=== PATIENT | female | born 1970 | race Caucasian/White ===

== ENCOUNTER 2025-04-09 10:25 | Day surgery (SDC) | payer SELFPAY ==
--- NOTE | 2025-03-31 09:01 | PCM.HP.BLA ---
History and Physical Date of Admission: 04/09/25 HPI: The patient is a 54 year old female presenting for pre-operative visit. She is scheduled for laparoscopic LSO, right salpingectomy, for pelvic pain and left ovarian cyst on 04/09/2025. Procedure discussed along with risks, benefits and complications. Other alternatives discussed for management. Consent form signed? Yes. ? ? PAST MEDICAL HISTORY PAST MEDICAL HISTORYDiagnosisDate?Essential hypertension? ? ? PAST SURGICAL HISTORY PAST SURGICAL HISTORYProcedureLateralityDate?VAGINAL HYSTERECTOMY?2006?still has ovaraies ? ? ? CURRENT MEDICATIONS Current Outpatient MedicationsMedicationSigDispenseRefill?ibuprofen (MOTRIN) 200 mg tabletTake 200 mg by mouth every 6 hours as needed.???hydroCHLOROthiazide (HYDRODIURIL, ESIDRIX) 25 mg tabletTake 25 mg by mouth once daily.???No current facility-administered medications for this visit. ? ? ALLERGIES: Morphine, Penicillin G, and Penicillins ? PERSONAL HISTORY: SOCIAL HISTORY Social History?Tobacco Use?Smoking status:Former??Types:Cigarettes?Smokeless tobacco:NeverVaping Use?Vaping status:current everyday user?Substances:Nicotine, Flavoring?Devices:DisposableSubstance Use Topics?Alcohol use:Never?Drug use:Never ? FAMILY HISTORY: FAMILY HISTORY History reviewed. No pertinent family history. ? REVIEW OF SYMPTOMS: GENERAL: denies fevers or chills ENDOCRINOLOGY: has not been on steroids Cardiology : denies palpitations or chest pain Respiratory: denies SOB or cough Hematology: denies history of prolonged bleeding or easy bruising or VTE Allergy: Denies history of personal or family history of allergy to anesthesia ? PHYSICAL EXAMINATION: ? VITALS: Blood pressure 116/78, weight 88.5 kg (195 lb). ? GENERAL: The patient is well nourished, well hydrated in no acute distress. , The patient is oriented to time, place, and person. NECK: Supple. No lynphadenopathy, normal thyroid, no thyromegaly. LUNGS: Clear to auscultation bilaterally. no wheezes, rhonchi or rales ? Pelvic US 03/20/25 RIGHT OVARY: Obscured by overlying bowel gas. ?? LEFT OVARY: 8.4 x 6.2 x 7 cm. There are 2 cysts measuring up to 7.8 x 6.1 x 5.7 cm. Smaller cyst measuring 1.3 x 1.3 x 0.8 cm. No solid mass. Arterial and venous?flow present. ?? OTHER: No significant pelvic free fluid. ? ? IMPRESSION: left ovarian cyst, pelvic pain ? PLAN: The risks/benefits/alternatives and personal involved for the planned laparoscopic LSO, right salpingectomy were reviewed with the patient. Her questions were answered to her satisfaction and she desires to proceed. Consent was signed. I reviewed with her postop instructions and expectations. ? ? I have reviewed and updated past medical and surgical history, medications and allergies Assessment & Plan Assessment/Plan (1) Left ovarian cyst: (2) Pelvic pain:
[2025-04-09] VITALS (9 sets, daily range): BP systolic 111–144; BP diastolic 90–104; PULSE 74–84; RESP 16–18; TEMP 36.2–37; O2SAT 98–100; BMI 32.5
[2025-04-09] MEDS: Lactated Ringers 1,000 ML 15 ML IV ×2 (11:13→12:20)
[2025-04-09] MEDS: Ketorolac 30 MG/ML Syringe IV (11:14)
--- NOTE | 2025-04-09 11:43 | PCM.PRE.AN2 ---
ASA Classification* ASA Classification ASA Classification: 2 Assessment & Plan Anesthesia* Anesthesia Assessment Anesthesia Assessment: Discussed sedation and/or anesthesia options, risks, benefits, and alternatives with patient/parents/legal guardian/POA. Questions invited. The patient/parents/legal guardian/POA seems to understand and agrees to proceed with anesthesia plan. Reviewed the physical assessment, medical history, allergy history and patient home medications list prior to surgery/procedure/anesthetic and documented any changes. Performed airway and anesthesia risk assessments. Anesthesia Type Anesthesia Type: General History Source History Obtained from:: Patient and Chart Anesthesia Focused Assessment* Temperature: 98.6 F Pulse Rate: 79 Blood Pressure: 125/94 Respiratory Rate: 18 Pulse Ox: 99 Oxygen Delivery Method: Room Air Airway Assessment Mouth opens: >3 cm Mallampati Score: III Teeth Condition: Dentures (Patient has full upper and lower dentures.) Neck Range of motion (ROM): Full ROM Labs Anesthesia Preop lab: CBC CHEMISTRY COAG Pre-Assessment Diagnosis/Proposed Procedure Planned Operative Procedure(s): (R) Laparoscopic left Salpingo-oopherectomy. right salpingectomy Anesthesia History Anesthesia History - life sciences director: Anesthesia History - life sciences director Hx Hospitalization Yes: 03/27/25 LT OVARY CYST 04/07/25 14:08 PAIN Any Problems With Anesthesia No 04/07/25 14:08 Cholinesterase deficiency No 04/07/25 14:08 You/Your Family Experience No 04/07/25 14:08 fever (hyperthermia) with Relationship Recent Exposure to Contagious No 04/09/25 11:05 Disease Does patient have nerve No 04/07/25 14:08 stimulator Patient instructed to have device shut off --Does patient have Pacemaker No 04/09/25 11:05 or ICD? When Was Last Pacemaker Check QUESTION #4 FULL TEXT: You/Your Family Experience fever (hyperthermia) with Anesthesia Last Oral Intake Last Oral intake: Last Oral Intake NPO since 23:00 04/09/25 11:05 Meds taken in AM with sips of water? Meds patient instructed to take am of surgery PONV PONV - life sciences director: PONV - life sciences director Female Yes 04/07/25 14:08 HX of Motion Sickness No 04/07/25 14:08 HX of N/V After Surgery No 04/07/25 14:08 Non-Smoker No 04/07/25 14:08 Duration of Surgery greater Yes 04/07/25 14:08 than 60 minutes Number of Risk Factors 2 04/07/25 14:08 PONV Score Moderate Risk 04/07/25 14:08 Height & Weight Height & Weight: Anesthesia: Height & Weight Height 5 ft 5 in 04/09/25 11:05 Weight: 88.6 kg 04/09/25 11:05 Body Mass Index (BMI) 32.5 04/09/25 11:05 Respiratory Assessment Respiratory Assessment - life sciences director: Respiratory Tract Infection Hx - life sciences director Hx Respiratory Tract Infection No 04/07/25 14:08 STOP Sleep Apnea STOP Sleep Apnea - life sciences director: STOP Sleep Apnea - life sciences director Hx Hypertension Yes: PER PT, CONTROLLED ON 04/07/25 14:08 MEDS Hx Sleep Apnea No 04/07/25 14:08 CPAP BIPAP Do you snore loudly (louder No 04/07/25 14:08 than talking or can be heard Do you often feel tired/ No 04/07/25 14:08 fatigued/ sleepy during daytime? Has anyone observed you stop No 04/07/25 14:08 breathing during sleep? STOP Results Negative 04/07/25 14:08 QUESTION #5 FULL TEXT : Do you snore loudly (louder than talking or can be heard through closed doors)? Tobacco Use History Tobacco Use History - life sciences director: Tobacco Use History - life sciences director Tobacco Use Smoking Status Current every day smoker 04/07/25 14:08 Hx Tobacco Use Yes 04/07/25 14:08 Years Smoking Packs Smoked per Day Smoking Cessation Date was within the last 15 years Hx Smoking Cessation Date Hx Smoking Cessation Counseling Any additional information?: Yes Tobacco Use: Vapor (Patient vaped today.) Hematologic Medial History Hematologic Hx - life sciences director: Hematologic Medical Hx - qualification engineer Hx of Blood Transfusion No 04/07/25 14:08 Hx of Transfusion in last 3 No 04/07/25 14:08 Months Date of Last Transfusion (if within last 3 months) Ever experience any problems No 04/07/25 14:08 with transfusion(s)? Specify any problems Hx of Preganancy in last 3 No 04/07/25 14:08 Months Nurse Filling Out Transfusion MGRIFFITH 04/07/25 14:08 & Questions: Date: 04/07/25 04/07/25 14:08 Time: 14:10 04/07/25 14:08 Patient unable to answer at this time (ie. confused, unrespo /Reproduction History /Reproductive History - life sciences director: /Reproductive Hx- life sciences director Hx Now No 04/07/25 14:08 Gestational Age (in weeks): EDC: Hx Hx Para Hx Section SAB No 04/07/25 14:08 Active Medications Active Medications: Current Medications Generic Name Dose Route Start Last Admin Trade Name Freq PRN Reason Stop Dose Admin Acetaminophen 1,000 mg 04/09/25 12:00 04/09/25 11:14 Acetaminophen 500 Mg Tablet PO 04/09/25 12:01 1,000 mg PREOP ONE Administration Lactated Ringer's 1,000 mls @ 15 mls/hr 04/09/25 11:15 04/09/25 11:13 IV 15 mls/hr .Q48H EDEN Administration Ketorolac Tromethamine 30 mg 04/09/25 12:00 04/09/25 11:14 Ketorolac 30 Mg/Ml Syringe IV 04/09/25 12:01 30 mg PREOP ONE Administration PFSH Medical History Wears contact lenses Wears glasses Wears dentures Smoker Hypertension Home Medications ?Medication ?Instructions ?Recorded ?Last Taken ?Type hydrochlorothiazide 25 mg tablet 25 mg PO DAILY 04/01/25 Unknown History Allergy/AdvReac Type Severity Reaction Status Date / Time morphine AdvReac Nausea Verified 04/09/25 11:05 Penicillins AdvReac Rash Verified 04/09/25 11:05 Surgical History History of hysterectomy Social History Smoking Status: Current every day smoker tobacco type: e-cigarettes Review of Systems (Anesthesia) ROS Narrative System reviewed and no additional complaints, except as documented.
--- NOTE | 2025-04-09 12:00 | OV_PTH ---
PATIENT: JUDITH OLIVIA LOC: [facility] – [place] U#:[id number] AGE/SX: 54/F ROOM: RE04/09/[address]: Dr. Sheryl Reardon MD : 1970 BED: DIS: 04/09/2025 SPEC #: [id number] RECD: 04/10/25 08:30 STATUS: JAMES REDella #: [id number] NASRIN: 04/09/25 12:[address]: Sheryl Reardon DEPT: SURGICAL PATHOLOGY RECD BY: Torin Hammond ENTERED: 04/13/25 08:32 SP TYPE: OVARY OTHR DR: Kelli Cole, SPECIAL CERTIFICATE DICTATOR-C Tissues: A - Ovary, NOS Procedures: Surgery Specimen Level IV HEADER OPERATION: Laparoscopic left oophorectomy, lysis of adhesions PRE-OP DIAGNOSIS: Left ovarian cyst, pelvic pain TISSUE SUBMITTED: A- Left ovary and cyst MICROSCOPIC DIAGNOSIS A. Left ovary, oophorectomy with lysis of adhesions: - Vascular congestion with widespread hemorrhagic necrosis - see note. Note: The findings are suggestive of sequelae secondary to torsion of the ovary. Recommend clinical correlation. MICROSCOPIC DESCRIPTION Slides are reviewed. GROSS DESCRIPTION A. Received in formalin labeled with the patient's name and date of . Designated as left ovary and cyst is an 89 g, preston-purple to red-gutierrez, disrupted and dusky apparent cyst, 10.1 x 7.0 x 2.9 cm. Sectioning reveals dark red-brown, congested and focally edematous cut surfaces with focal fibrosis. Definitive ovarian parenchyma/excrescences are not grossly identified. Front End Alignment Specialist sections are submitted in 5 cassettes, to include the focal fibrosis in cassette A1. CO 04/10/2025 A. Additional sales representative health insurance sections are submitted in cassettes A6-A10, following histopathologic review. CO 04/16/2025 CPT:58273
--- NOTE | 2025-04-09 12:00 | FLU_PTH ---
PATIENT: JUDITH OLIVIA LOC: [facility] – [place] U#:[id number] AGE/SX: 54/F ROOM: RE04/09/[address]: Dr. Sheryl Reardon MD : 1970 BED: DIS: 04/09/2025 SPEC #: [id number] RECD: 04/09/25 15:53 STATUS: JAMES REQ #: [id number] NASRIN: 04/09/25 12:[address]: Sheryl Reardon DEPT: CYTOLOGY RECD BY: Torin Hammond ENTERED: 04/10/25 09:09 SP TYPE: Fluid OTHR DR: Kelli Cole, RODRI-C Tissues: A - Peritoneal fluid Procedures: Special Stain Group II Surgery Specimen Level IV Cytospin Fluid HEADER OPERATION: Laparoscopic left oophorectomy, lysis of adhesions PRE-OP DIAGNOSIS: Left ovarian cyst, pelvic pain TISSUE SUBMITTED: A- Peritoneal washings for cytology DIAGNOSIS CYTOLOGY A. Peritoneal cavity, washings (cytospin, cellbloc): - No malignant cells identified. - Blood is present. - No epithelial cells observed. CYTOLOGY STUDY Slides are reviewed. CYTOLOGY GROSS A. Received is 20 ml of red-bloody fluid with particles labeled with the patient's name and and designated per the requisition as Peritoneal washings. Submitted for cytology and cell block preparation. Mr 04/10/2025 CPT: 02424,08485
[2025-04-09] MEDS: Lactated Ringers 1,000 ML 1000 ML IV (13:17)
[2025-04-09] MEDS: Lidocaine 1% (5 ml sdv) 5 ML Vial IV (13:24)
--- NOTE | 2025-04-09 13:30 | PCM.DC ---
Discharge Instructions DC O2, CPAP, BIPAP needs Home O2 Discharge instructions: No Dressing / Incision Discharge Activity: May Drive (in 2 days as tolerated) Return to work on:: 04/13/25 May shower in (days): 1 Additional Activity Instructions:: Ambulate often the next week after surgery. Nothing in the vagina for 5 days. No lifting > 20 lbs for 2 weeks Dressing / Incision Call your doctor if your incision/area has: Continuous Slow Oozing, Sudden Increased Bleeding, Increased Pain/ Swelling, Increased Redness and Foul Smelling Discharge Call your doctor if you observe: Fever of 101 or Higher and Using more than 1 pad per hour Cleanse incision/area with: Soap & Water (Your incisions have skin glue, leave it on until it falls off or for at least 10-14 days) Follow Up Care Please Follow Up With: Sheryl Reardon MD When: Call [phone] to schedule a postop if you do not have one. Call or send a [employer] message as for questions or as needed. Test Results: Test results from this visit will be discussed in further detail at your follow-up appointment, if applicable. Discharge Plan Admission Attending Provider: Sheryl Reardon Primary Care Provider: Kelli Cole NP Instructions Print Language: Ugandan Discharge Orders/Prescriptions Prescriptions: No Action hydrochlorothiazide 25 mg tablet 25 mg PO DAILY Referrals / Follow Up: Kelli Cole NP, PLANT SECURITY GUARD-C [Primary Care Provider] - Disposition Disposition (needs filled in before D/C Order can be placed): Home, Self Care
[2025-04-09] MEDS: fentaNYL 100 MCG/2 ML Ampul 200 MCG IV (14:10)
--- NOTE | 2025-04-09 14:39 | PCM.OPRPT ---
Operative Report (Standard) Operative Information Date of Procedure: 04/09/25 Pre-Operative Diagnosis: Left ovarian cyst Post-Operative Diagnosis: Same Surgery/Procedure Performed: Laparoscopic lysis of adhesions property and supply officer: No Type of Anesthesia: General/Supplemental RN Documented Start/Stop Times: Operation Date: 04/09/25 12:00 Case Time Into Pre-Op 04/09/25 10:32 Anesthesia Start 04/09/25 13:17 Into Room 04/09/25 13:17 Out of Pre-Op 04/09/25 13:17 Procedure Start 04/09/25 13:44 Procedure End 04/09/25 15:32 Anesthesia End 04/09/25 15:39 Out of Room 04/09/25 15:39 Into Recovery 04/09/25 15:43 Procedure Start Time: 02:25 Procedure Stop Time: 02:38 Select all DRAINS/GRAFTS/IMPLANTS that apply: None Special Medications: See Dr. Reardon's dictation Estimated Blood Loss: - Specimen collected: No Description of surgery: Intraoperative consult for adhesions of sigmoid diverticuli to lower left abdominal wall. Please see Dr. Reardon's operative report for beginning of the case. Atraumatic graspers used to provide traction and Enseal used to divide the adhesions. Diverticuli and sigmoid colon was moved away from the left lower abdominal wall to allow Dr. Reardon to proceed with her case. No injury to the sigmoid colon or diverticuli were noted. Please see Dr. Reardon's operative report for the end of the case Surgical Findings: See operative notes Complications Complications: No
--- NOTE | 2025-04-09 15:03 | CON.PCM.SX_ITS ---
Assessment & Plan Assessment/Plan (1) Left ovarian cyst: (2) Pelvic pain: PLAN: Plan IntraOp laparoscopic lysis of adhesions freeing the sigmoid colon/diverticuli from the left lower quadrant abdominal wall and allowed Dr. Reardon to proceed with her surgery. Did discuss with patient's after the procedure. Kathrine Bermudez M.D. Pager: [phone] [facility] [address] [place] [address], [facility], [address] [place] [address] Office: [phone] HPI Consult Data Date of Consult: 04/09/25 HPI Narrative HPI Narrative: JUDITH OLIVIA, is a 54 F who initially presented due to left ovarian cyst for surgery with Dr. Reardon. Intraoperatively there were adhesions from the sigmoid diverticuli to the left lower quadrant abdominal wall and intraoperative consult was obtained. [facility] Medical History Wears contact lenses Wears glasses Wears dentures Smoker Hypertension Home Medications ?Medication ?Instructions ?Recorded ?Last Taken ?Type hydrochlorothiazide 25 mg tablet 25 mg PO DAILY Unknown History acetaminophen 500 mg tablet 1,000 mg (2 x 500 mg) PO Q 6H PRN 04/09/25 Unknown Rx (Acetaminophen Extra Strength) fever or pain 15 days # 60 tabs ibuprofen 600 mg tablet 600 mg PO Q6H PRN Pain 20 da ys #60 04/09/25 Unknown Rx TABLETS oxycodone 5 mg tablet 5 mg PO Q8H PRN PRN severe p ain 3 04/09/25 Unknown Rx days #6 TABLETS Allergy/AdvReac Type Severity Reaction Status Date / Time morphine AdvReac Nausea Verified 04/09/25 11:05 Penicillins AdvReac Rash Verified 04/09/25 11:05 Surgical History History of hysterectomy Social History Smoking Status: Current every day smoker tobacco type: e-cigarettes Physical Exam Narrative Patient sedated under anesthesia
--- NOTE | 2025-04-09 15:27 | OP.PCM_ITS ---
Problems Associated Problem List Diagnoses (1) Pelvic pain: (2) Left ovarian cyst: Operative Report (Standard) Operative Information Date of Procedure: 04/09/25 Pre-Operative Diagnosis: pelvic pain, left ovarian cyst Post-Operative Diagnosis: same plus extensive adhesions of the ovary to the pelvic sidewalls, posterior cul de sac and colon to the ovary Surgery/Procedure Performed: Extensive lysis of adhesions and left oophorectomy balance wheel screw hole tapper: Yes Squeegee Operator: Steph Moss Tasks completed by assistant coach: Closing, Altering tissue and Retracting Additional bilingual administrative assistant?: Yes Additional Card Table Attendant #2: Treasure Goyal MS3 Tasks completed by bilingual administrative assistant #2: Trocar and Retracting Additional bilingual administrative assistant?: No Type of Anesthesia: General RN Documented Start/Stop Times: Operation Date: 04/09/25 12:00 Case Time Into Pre-Op 04/09/25 10:32 Out of Pre-Op 04/09/25 13:17 Procedure Start Time: 13:44 Procedure Stop Time: 15:32 Select all DRAINS/GRAFTS/IMPLANTS that apply: None Estimated Blood Loss: 30 cc Fluids Replaced: 1000 cc Specimen collected: Yes Description of specimen(s) removed: left ovary and cyst Description of surgery: The patient was taken to the operating room where she was prepped and draped in the dorsolithotomy position. A sponge stick was placed in the vagina. Attention was turned to the abdomen. All port sites were infiltrated with 0.5% Marcaine before skin incisions were made. A 5 mm intraumbilical incision was made. The anterior abdominal wall was tented up with 2 towel clamps while a 5 mm blade less trocar and sleeve were directly inserted. Intraperitoneal placement was confirmed with the laparoscope. The pneumoperitoneum was created and the underlying abdominal contents were intact. The patient was placed in Trendelenburg. Right and left lower quadrant ports were placed under direct visualization lateral to the inferior epigastric vessels. The bowel was swept away and the above findings were noted. Laparoscopic washings were performed The laparoscopic scissors used were used and blunt and sharp dissection was performed to try to free up as much of the ovary from the surrounding tissues and pelvic sidewall on the right as possible. I also started dissecting it back off the bladder flap and under the posterior cul-de-sac. Suction kitchenhand was used for blunt dissection. However there was a area of bowel and sigmoid colon adhered to the anterior part of the ovarian cyst wall and over where the infun dibulopelvic ligament was located. Those adhesions were somewhat dense and an intraoperative consultation per Dr. Mcclellan from general surgery was performed. She scrubbed in and remove the adhesions and her portion is dictated separately. At this point I was able to locate the infundibulopelvic ligament and clamped sealed and transected with the Enseal device. No definitive fallopian tube was noted. There were still some adhesions to the vaginal cuff and the extensive lysis of adhesions took 60 minutes above what would normally be expected for a case like this. Then amputated as much of the ovary and the cyst from the surrounding pelvic tissues as possible. There may have been a small amount of stool adhered to the rectum. However, when I attempted to peel it away it did not peel easily and there was concern for rectal injury if I continued to try to remove it. At this point the specimen was placed in an Endo Catch bag. Much of the cyst fluid was suctioned out of the bag and was hemorrhagic. The umbilical port site was enlarged to allow removal of the remaining ovary and cyst and cyst fluid. The pelvis was irrigated with 1 L of normal saline. The pedicles were again examined and found to be hemostatic. Hemablast was placed over the periotoneal surfaces as they were raw and slighlty oozing but no active bleeding through the Hemablast was noted. The lateral ports were removed under direct visualization and no active bleeding was noted. The pneumoperitoneum was released. The fascia of the umbilical port site was closed with 0 Vicryl suture in a running standard fashion. The skin incisions were closed with Monocryl suture in a subcuticular fashion and skin glue . The vaginal instruments were removed and the vaginal sweep was completed by me. The procedure was performed by me with assistance other than as dictated above. All sponge and needle counts were correct and the patient was taken to the recovery room in stable condition. Surgical Findings: absent uterus, tubes and right ovary, enlarged hemorrhagic left ovary extensively adhesed Complications Complications: No Admit VTE Documentation VTE Present on Admission: No VTE Mechan Device Prophylaxis: SCD's VTE Pharm Prophylaxis ordered?: No
--- NOTE | 2025-04-09 15:48 | PCM.POST.ANE ---
Anesthesia: Postop Eval I Current Vital Signs Temperature: 97.4 F Pulse Rate: 82 Blood Pressure: 111/91 Respiratory Rate: 16 Pulse Ox: 100 Oxygen Delivery Method: Room Air Assessment Airway patent: Yes Spontaneous unlabored respirations: Yes Mental status: Awake and Calm nausea: No Vomiting: No Anesthesia Complication: No Fluid Hydration Crystalloid volume administer (ml): 1,000 Total IV fluid infused: 1,000 Progress Note Anesthesia document: Postop Eval 1 completed: Yes
--- NOTE | 2025-04-09 19:40 | POSTOPAN2_ITS ---
Anesthesia Postop Eval I Sum Postop Eval Completion status Anesthesia document: Postop Eval 1 completed: Yes Anesthesia Postop Eval I Summary Anesthesia Postop Eval I Summary: Anesthesia Postop Eval I: Assessment Summary Airway patent Yes 04/09/25 15:49 METAL [email or web address] Spontaneous unlabored Yes 04/09/25 15:49 METAL [email or web address] respirations Mental status Awake,Calm 04/09/25 15:49 METAL [email or web address] nausea No 04/09/25 15:49 METAL [email or web address] Vomiting No 04/09/25 15:49 METAL [email or web address] Anesthesia Postop Eval I: Fluid Summary Crystalloid volume administer 1,000 04/09/25 15:49 METAL [email or web address] (ml) Colloids volume administered ( ml) Blood Product volume administered (ml) Total IV fluid infused 1,000 04/09/25 15:49 METAL [email or web address] Anesthesia Postop Eval I: Summary Notes Anesthesia Complication No 04/09/25 15:49 METAL [email or web address] Anesthesia Complication Comment: Post-operative progress note Anesthesia: Postop Eval II Evaluation Mental status: Awake and Calm Pain Level: 1 nausea: No Vomiting: No Complications Anesthesia Complication: No
--- NOTE | 2025-04-09 19:40 | PCM.POSTANE2 ---
Anesthesia Postop Eval I Sum Postop Eval Completion status Anesthesia document: Postop Eval 1 completed: Yes Anesthesia Postop Eval I Summary Anesthesia Postop Eval I Summary: Anesthesia Postop Eval I: Assessment Summary Airway patent Yes 04/09/25 15:49 [email or web address] [email or web address] Spontaneous unlabored Yes 04/09/25 15:49 LINING [email or web address] respirations Mental status Awake,Calm 04/09/25 15:49 [email or web address] [email or web address] nausea No 04/09/25 15:49 [email or web address] [email or web address] Vomiting No 04/09/25 15:49 LINING [email or web address] Anesthesia Postop Eval I: Fluid Summary Crystalloid volume administer 1,000 04/09/25 15:49 LINING [email or web address] (ml) Colloids volume administered ( ml) Blood Product volume administered (ml) Total IV fluid infused 1,000 04/09/25 15:49 LINING [email or web address] Anesthesia Postop Eval I: Summary Notes Anesthesia Complication No 04/09/25 15:49 LINING [email or web address] Anesthesia Complication Comment: Post-operative progress note Anesthesia: Postop Eval II Evaluation Mental status: Awake and Calm Pain Level: 1 nausea: No Vomiting: No Complications Anesthesia Complication: No
== END 2025-04-09 17:22 | disposition home or self-care (01) ==
LOC: SDC 10:27 → AC 10:29
PROVIDERS: PCP Nurse Practitioner Family; Referring Provider Obstetrics & Gynecology; Visit Provider Obstetrics & Gynecology
PROC: (CPT 58720; principal; 2025-04-09 11:45)
DX: N83.202 Unspecified ovarian cyst, left side (principal); K66.0 Peritoneal adhesions (postprocedural) (postinfection); I10 Essential (primary) hypertension; Z79.899 Other long term (current) drug therapy; F17.290 Nicotine dependence, other tobacco product, uncomplicated
CPT/HCPCS: 58661; 00840; 88108; 88305; 88313; 93005; J2405